=== PATIENT | female | born 1950 | race Two or more races ===

== ENCOUNTER 2017-12-31 14:07 | Outpatient (CLI) | payer OTHER ==
[~2017-12-31 14:07] MED LIST: CELEBREX100 MG PO
== END 2017-12-31 17:00 | disposition home or self-care (01) ==
LOC: MRI 14:07
DX: M54.5 Low back pain (principal)
CPT/HCPCS: 72148

== ENCOUNTER 2017-12-31 14:14 | Outpatient (CLI) | payer OTHER | END 2017-12-31 17:00 | disposition home or self-care (01) | LOC: RAD 14:14 | DX: M54.5 Low back pain (principal); M25.551 Pain in right hip; M25.552 Pain in left hip; M25.561 Pain in right knee; M25.562 Pain in left knee ==

== ENCOUNTER → 2018-04-23 | Outpatient (CLI) | payer OTHER | END | disposition home or self-care (01) | LOC: RAD 14:05 | DX: M54.2 Cervicalgia (principal); M25.511 Pain in right shoulder | CPT/HCPCS: 72141 ==

== ENCOUNTER 2018-06-23 21:58 | Emergency (ER) | payer OTHER ==
[~2018-06-23] VITALS: Ht 152.4 cm; Wt 61.2 kg
[2018-06-23] MEDS ORDERED: ATORVASTATIN CA20 MG (22:46)
[2018-06-23] MEDS ORDERED: GABAPENTIN100 MG (22:46)
[2018-06-23] MEDS ORDERED: OMEPRAZOLE40 MG (22:47)
[2018-06-24] MEDS ORDERED: MOBIC15 MG PO (00:50)
[2018-06-24] MEDS ORDERED: NORFLEX100MG PO (00:50)
== END 2018-06-24 01:14 | disposition home or self-care (01) ==
LOC: ER 21:58
DX: M54.2 Cervicalgia (principal)

== ENCOUNTER 2018-12-05 12:17 | Outpatient (CLI) | payer OTHER ==
[~2018-12-05 12:17] MED LIST changes: +ATORVASTATIN CA20 MG; +GABAPENTIN100 MG; +GLUMETZA500 MG PO; +MOBIC15 MG PO; +NORFLEX100MG PO; +OMEPRAZOLE40 MG; +PROTONIX40 M1 PO
[2018-12-11] MEDS ORDERED: PERCOCET 5-3251 EACH PO (11:20)
[2018-12-11] MEDS ORDERED: DOCUSATE SODIU100 MG PO (11:20)
[2018-12-11] MEDS ORDERED: CLONAZEPAM0.5 M1 PO (11:20)
== END 2018-12-05 12:33 | disposition home or self-care (01) ==
LOC: SONOGRAMA 12:17 → MAMO-SONO 12-06 10:45
DX: E04.2 Nontoxic multinodular goiter (principal)

== ENCOUNTER 2019-03-04 10:58 | Outpatient (CLI) | payer OTHER ==
[~2019-03-04 10:58] MED LIST changes: +CLONAZEPAM0.5 M1 PO; +DOCUSATE SODIU100 MG PO; +PERCOCET 5-3251 EACH PO
== END 2019-03-04 11:01 | disposition home or self-care (01) ==
LOC: RX STUDY 10:58
DX: R13.19 Other dysphagia (principal)

== ENCOUNTER 2019-06-24 08:00 | Day surgery (SDC) | payer OTHER ==
[~2019-06-24] VITALS: Ht 152.4 cm; Wt 58.1 kg
[~2019-06-24 08:00] MED LIST changes: +LIPITOR40 MG PO
== END 2019-06-25 13:00 | disposition home or self-care (01) ==
LOC: CIR.AMB 08:00 → EDSTATUS 13:15 → SURG 13:15 → SURH 13:26 → O/R 13:26 → SURH 06-25 09:48 → CIR.AMB 06-25 13:00
DX: C73 Malignant neoplasm of thyroid gland (principal); E03.8 Other specified hypothyroidism

== ENCOUNTER → 2019-06-30 09:26 | Outpatient (CLI) | payer OTHER | END | disposition home or self-care (01) | LOC: LAB 09:26 | DX: C73 Malignant neoplasm of thyroid gland (principal); E55.9 Vitamin D deficiency, unspecified ==

== ENCOUNTER 2019-08-11 07:39 | Outpatient (CLI) | payer OTHER | END 2019-08-11 15:00 | disposition home or self-care (01) | LOC: LAB 07:39 | DX: C73 Malignant neoplasm of thyroid gland (principal); E89.0 Postprocedural hypothyroidism ==

== ENCOUNTER 2019-08-14 11:39 | Outpatient (CLI) | payer OTHER | END 2019-08-14 11:42 | disposition home or self-care (01) | LOC: NUCLEAR 11:39 | DX: C73 Malignant neoplasm of thyroid gland (principal) | CPT/HCPCS: 79005; A9517 ==

== ENCOUNTER 2019-08-18 13:57 | Outpatient (CLI) | payer OTHER | END 2019-08-18 14:09 | disposition home or self-care (01) | LOC: NUCLEAR 13:57 | DX: C73 Malignant neoplasm of thyroid gland (principal) | CPT/HCPCS: 78018; 78020; A9528 ==

== ENCOUNTER 2020-05-20 13:02 | Outpatient (CLI) | payer OTHER | END 2020-05-20 13:21 | disposition home or self-care (01) | LOC: MRI 13:02 | PROVIDERS: ATTEND Orthopaedic Surgery Hand Surgery | DX: M25.811 Other specified joint disorders, right shoulder (principal) | CPT/HCPCS: 73218 ==

== ENCOUNTER 2020-08-20 12:12 | Outpatient (CLI) | payer BC, OTHER | END 2020-08-20 13:00 | disposition home or self-care (01) | LOC: NUCLEAR 12:12 | PROVIDERS: ATTEND Internal Medicine Sports Medicine | DX: C73 Malignant neoplasm of thyroid gland (principal) | CPT/HCPCS: 78018; 78020; A9528 ==

== ENCOUNTER 2021-05-18 10:53 | Outpatient (CLI) | payer OTHER | END 2021-05-18 11:02 | disposition home or self-care (01) | LOC: TOM 10:53 | PROVIDERS: ATTEND Otolaryngology | DX: J32.4 Chronic pansinusitis (principal); L98.8 Other specified disorders of the skin and subcutaneous tissue ==

== ENCOUNTER 2021-11-08 12:17 | Outpatient (CLI) | payer OTHER | END 2021-11-08 12:20 | disposition home or self-care (01) | LOC: SONOGRAMA 12:17 | PROVIDERS: ATTEND Internal Medicine Sports Medicine | DX: E04.1 Nontoxic single thyroid nodule (principal); C73 Malignant neoplasm of thyroid gland ==

== ENCOUNTER 2022-12-13 10:15 | Outpatient (CLI) | payer OTHER | END 2022-12-13 10:17 | disposition home or self-care (01) | LOC: TOM 10:15 | PROVIDERS: ATTEND Internal Medicine | DX: N18.2 Chronic kidney disease, stage 2 (mild) (principal); D30.00 Benign neoplasm of unspecified kidney; D17.71 Benign lipomatous neoplasm of kidney ==

== ENCOUNTER 2024-05-21 09:26 | Outpatient (CLI) | payer OTHER | END 2024-05-21 09:27 | disposition home or self-care (01) | LOC: NUCLEAR 09:26 | PROVIDERS: ATTEND Internal Medicine | DX: I70.219 Atherosclerosis of native arteries of extremities with intermittent claudication, unspecified extremity (principal) ==

== ENCOUNTER → 2024-05-22 09:28 | Outpatient (CLI) | payer OTHER | END | disposition home or self-care (01) | LOC: NUCLEAR 09:28 | PROVIDERS: ATTEND Internal Medicine | DX: I87.2 Venous insufficiency (chronic) (peripheral) (principal) ==